=== PATIENT | female | born 1990 | race Caucasian/White ===

== ENCOUNTER → 2017-04-17 | Outpatient (CLI) | payer MEDICAID ==
[~2017-04-17] MED LIST: ADIPEX-P37.5 MG PO; BLEPHAMIDE OP; CLARITIN 10MG T10 MG PO; DEPO PROVER150 MG/ML IM; FLINTSTONES GUM16 MG PO; IBU800 MG PO; IRON TABLETS325 MG PO; KEFLEX500 M1 PO; NAPROXEN SODIU500 MG PO; RANITIDINE HCL150 MG PO; VICODIN 5/500 T1 TAB PO; ZANTAC150 MG PO
--- NOTE | 2017-04-18 10:14 | RADIOLOGY REPORT PS360 ---
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 Average ultrasound age is 35 weeks 4 days. Estimated due date by ultrasound is 05/18/2017. Estimated weight is 2761 g. 51 percentile. There has been adequate progression compared to the previous ultrasound of 01/01/2017 BPD: 35 weeks 3 days OFD: 34 weeks 1 day HC: 34 weeks 2 days AC: 35 weeks 6 days FL: 36 weeks 3 days heart rate: 122 bpm. HC/AC: 0.96 Cephalic index: 82% FL/BPD: 81% FL/AC: 22% Amniotic fluid index: 11.2 cm Qualitative AFV: 2 breathing movements: 2 Gross body movements: 2 Tone: 2 Biophysical profile score: 8/8 Doppler evaluation of the umbilical artery: SD ratio: 2.2 Resistive index: 0.55 No obvious anomalies evident. Placenta: Anterior and grade 1. No previa or abruption Cervix: Appears closed and measures 3 cm IMPRESSION: Live intrauterine gestation at 35 weeks 4 days cephalic position. Estimated weight is 2761 g which is 51 percentile. There has been adequate progression. Biophysical profile 8 of 8. SD ratio within normal limits
== END ==
LOC: RAD 04-14 13:30
DX: O36.63X1 Maternal care for excessive fetal growth, third trimester, fetus 1 (principal)

== ENCOUNTER → 2017-04-21 | Outpatient (CLI) | payer MEDICAID | LOC: LAB 18:25 | DX: Z34.80 Encounter for supervision of other normal pregnancy, unspecified trimester (principal) ==